=== PATIENT | male | born 1970 | race Two or more races ===

== ENCOUNTER 2016-06-24 21:16 | Emergency (ER) | payer OTHER ==
--- NOTE | ~2016-06-24 | CR63 ---
[facility] A Service of [facility] & [facility] RADIOLOGY TEXT RESULTS PATIENT: KUMAR GREENFIELD LOCATION: [place] : 74 UNIT #: [id number] AGE: [address]: Alia Valadez APRN SEX: M ORDER DR: [id number] [facility] [address] [facility] [place], [place] [address] [id number] E MR#: [id number] Acc #: [id number] NAME: KUMAR GREENFIELD : 1970 SEX: M STUDY DATE/TIME: 06/24/2016 21:58 UNIT: [facility] ROOM: STUDY DESCRIPTION: CR Chest 2 View Attending Physician: Alia Valadez A.P.R.N. Ordering Physician: Alia Valadez A.P.R.N. Primary Care Physician: Alessandra Guadalupe M.D. MEDICAL IMAGING REPORT This report is preliminary unless electronic signature is present EXAM Chest PA and lateral 06/24/2016 HISTORY Cough for 3 days with chest pressure beginning today. Benign essential hypertension. FINDINGS PA and lateral examination of the chest upright shows a good expansion of the parenchyma with a normal distribution of the pulmonary vascularity. There is no indication of congestion, effusion, infiltrate, tumor, or nodular density. The pleural reflections and diaphragmatic contours are normal. The cardiac silhouette and mediastinal anatomy is within normal limits. IMPRESSION Normal chest. Dictated by... Jorge Buck M.D. THIS IS AN ELECTRONICALLY VERIFIED REPORT Jorge Buck M.D. at 06/25/2016 3:18 PM KRT/julio TD: 06/25/2016 01:04 JOB #: [id number] MEDICAL IMAGING REPORT Page 1 of 1 COPY
[~2016-06-24 21:16] MED LIST: DARVOCET-N 1001 TA1 PO; DEPRESSION MED; LORTAB 5/500 TA1 TA1 PO
== END 2016-06-24 22:20 | disposition home or self-care (01) ==
LOC: CFTX 21:16
DX: J40 Bronchitis, not specified as acute or chronic (principal); J06.9 Acute upper respiratory infection, unspecified; I10 Essential (primary) hypertension; F17.210 Nicotine dependence, cigarettes, uncomplicated
CPT/HCPCS: 71020; 99283

== ENCOUNTER 2016-11-06 14:51 | Emergency (ER) | payer OTHER ==
[~2016-11-06] VITALS: Ht 179.1 cm; Wt 95.2 kg
--- NOTE | ~2016-11-06 | CT71 ---
[facility] A Service of [facility] RADIOLOGY TEXT RESULTS PATIENT: KUMAR GREENFIELD LOCATION: [facility] : 74 UNIT #: [id number] AGE: [address]: Endy Rea MD SEX: M ORDER DR: [id number] [address] [place] [facility]. [place], [place] [address] [id number] E MR#: [id number] Acc #: [id number] NAME: KUMAR GREENFIELD : 1970 SEX: M STUDY DATE/TIME: 11/06/2016 19:16 UNIT: [facility] ROOM: STUDY DESCRIPTION: CT Head Wo Contrast Attending Physician: Endy Rea M.D. Ordering Physician: Endy Rea M.D. Primary Care Physician: Alessandra Guadalupe M.D. MEDICAL IMAGING REPORT This report is preliminary unless electronic signature is present EXAM CT head without contrast dated 11/06/2016 COMPARISON None. HISTORY Headache, nosebleed, right eye feels heavy today. Pain behind the forehead. TECHNIQUE This CT exam was performed with one or more of the following radiation dose reduction techniques: automatic control, adjustment of mA and/or kV according to patient size, and iterative reconstruction. FINDINGS CT of the head was obtained without contrast in the axial pain as per the protocol. No acute intracranial hemorrhage, space occupying mass, mass effect, midline shift or hydrocephalus. S-shaped nasal septal deviation is noted with apical spur in the left side. Paranasal sinus mucosal thickening is noted, moderate in bilateral ethmoid sinuses. Mastoid air cells are well aerated. Orbits and the ocular structures do not demonstrate any significant abnormality. IMPRESSION 1. No demonstrable acute intracranial abnormality. 2. Paranasal sinus mucosal thickening is noted particularly in bilateral ethmoid sinuses with s-shaped nasal septal deviation. [facility] A Service [facility] RADIOLOGY TEXT RESULTS PATIENT: KUMAR GREENFIELD LOCATION: [facility] : 74 UNIT #: [id number] AGE: [address]: Endy Rea MD SEX: M ORDER DR: Dictated by... Irvin Caro M.D. THIS IS AN ELECTRONICALLY VERIFIED REPORT Irvin Caro M.D. at 11/07/2016 10:01 PM CPR/rnr TD: 11/07/2016 12:39 JOB #: [id number] MEDICAL IMAGING REPORT Page 1 of 1 COPY
== END 2016-11-06 20:13 | disposition home or self-care (01) ==
LOC: CED 14:51
DX: R51 Headache (principal); I10 Essential (primary) hypertension; F17.200 Nicotine dependence, unspecified, uncomplicated
CPT/HCPCS: 70450; 99284